=== PATIENT | female | born 1990 | race Caucasian/White ===

== ENCOUNTER 2021-09-30 13:52 | Emergency (ER) | payer OTHER ==
[~2021-09-30] VITALS: Ht 154.9 cm; Wt 54.4 kg
[2021-09-30] MEDS ORDERED: PSEU120T57 PO (14:35)
--- NOTE | 2021-09-30 14:46 | NUR ---
Patient discharged to home in stable condition. Written and verbal after care instructions given. Patient verbalizes understanding of instructions. Stressed follow up or return to ER for worsening s/s.
== END 2021-09-30 14:47 | disposition home or self-care (01) ==
LOC: ER 13:52
DX: J06.9 Acute upper respiratory infection, unspecified (principal); Z20.822 Contact with and (suspected) exposure to COVID-19; J45.909 Unspecified asthma, uncomplicated
CPT/HCPCS: A4663

== ENCOUNTER 2022-05-14 08:54 | Emergency (ER) | payer OTHER ==
[~2022-05-14] VITALS: Ht 157.5 cm; Wt 57.2 kg
[~2022-05-14 08:54] MED LIST: PSEU120T57 PO
--- NOTE | 2022-05-14 09:12 | NUR ---
PT IS IN ROOM #2B. DR ZAMAN EVALUATED THE PT.
[2022-05-14] MEDS ORDERED: IBUPROFEN 600 MG TABLET PO ONE (09:30)
[2022-05-14] MEDS ORDERED: ACETAMINOPHEN ES 500 MG TABLET PO ONE (09:30)
[2022-05-14] MEDS ORDERED: ACET-73 PO (09:32)
[2022-05-14] MEDS ORDERED: AMOX-430 PO (09:32)
[2022-05-14] MEDS ORDERED: IBUP-1955 PO (09:32)
[2022-05-14] MEDS ORDERED: IBUPROFEN 600 MG TABLET ONE (09:41)
[2022-05-14] MEDS ORDERED: ACETAMINOPHEN ES 500 MG TABLET ONE (09:41)
--- NOTE | 2022-05-14 10:39 | NUR ---
PT WAS D/C'd TO HOME. D/C INSTRUCTIONS GIVEN TO THE PT BY DR ZAMAN.
[2022-05-14 10:40] VITALS: BP 136/61
== END 2022-05-14 10:40 | disposition home or self-care (01) ==
LOC: ER 08:55
DX: K08.89 Other specified disorders of teeth and supporting structures (principal); J45.909 Unspecified asthma, uncomplicated; K21.9 Gastro-esophageal reflux disease without esophagitis
CPT/HCPCS: A4663; A9150